=== PATIENT | male | born 1955 | race Hispanic/Latino ===

== ENCOUNTER 2021-02-14 15:00 | Inpatient (IN) | payer OTHER ==
[~2021-02-14] VITALS: Ht 177.8 cm; Wt 135.2 kg
[2021-02-14] MEDS ORDERED: ASPIRIN 325MG TAB ONE (15:12)
[2021-02-14] MEDS ORDERED: NITROGLYCERIN 0.4 MG SL TAB SL ONE (15:12)
[2021-02-14 15:22] LABS: BASOPHILS % (AUTO) 0.5 % (0.0-5.0); EOSINOPHILS % (AUTO) 1.7 % (0.0-8.0); HEMATOCRIT 49.6 % (42-54); LYMPHOCYTES % (AUTO) 33.6 % (21.0-51.0); MEAN CORPUSCULAR HEMOGLOBIN 30.1 pg (27.0-33.0); MEAN CORPUSCULAR HGB CONC 32.1 g/dL (32.0-36.0); MEAN CORPUSCULAR VOLUME 93.9 fL (79-99); MONOCYTES % (AUTO) 10.3 % (3.0-13.0); NEUTROPHILS % (AUTO) 53.7 % (40.0-77.0); PLATELET COUNT (AUTO) 315 K/uL (130-400); RED BLOOD CELL COUNT(AUTO) 5.28 MIL/uL (4.50-6.20); RED CELL DISTRIBUTION WIDTH 13.7 % (11.0-15.5); WHITE BLOOD COUNT (AUTO) 9.6 K/uL (4.8-10.8)
[2021-02-14] MEDS ORDERED: ASPIRIN 325MG TAB PO ONE (15:30)
[2021-02-14] MEDS ORDERED: NITROGLYCERIN 0.4 MG SL TAB SL PRN (15:30)
[2021-02-14 15:32] LABS: CREATININE 1.2 mg/dL (0.5-1.5)
[2021-02-14 15:39] LABS: ALBUMIN 3.7 g/dL (3.5-5.0); BILIRUBIN,TOTAL 0.8 mg/dL (0.2-1.0); TOTAL PROTEIN, SERUM 8.2 g/dL (6.0-8.3)
[2021-02-14 15:51] LABS: B-TYPE NATRIURETIC PEPTIDE 209 pg/mL (0-100)
[2021-02-14] MEDS ORDERED: CLOPIDOGREL 300MG TAB PO ONE (17:00)
[2021-02-14] MEDS ORDERED: ACETAMINOPHEN 325 MG TAB PO PRN ×2 (17:00)
[2021-02-14] MEDS ORDERED: HYDRALAZINE 20MG/ML VIAL IV PRN (17:00)
[2021-02-14] MEDS ORDERED: ONDANSETRON 4MG INJ IV PRN (17:00)
[2021-02-14 17:16] LABS: CHOLESTEROL 201 mg/dL (<200); HDL CHOLESTEROL 44 mg/dL (29-71); LDL DIRECT 125 mg/dL (0-99); TRIGLYCERIDES 307 mg/dL (30-200)
[2021-02-14] MEDS ORDERED: MORPHINE 2 MG SYG IVP PRN (18:30)
[2021-02-14] MEDS ORDERED: CLOPIDOGREL 300MG TAB ONE (20:07)
[2021-02-14] MEDS: FAMOTIDINE 20MG TAB PO SCH (20:55)
[2021-02-14] MEDS ORDERED: FAMOTIDINE 20MG VIAL IV SCH (21:00)
[2021-02-14 21:10] VITALS: BP 149/99
[2021-02-14] MEDS ORDERED: HEPARIN 5,000 UNIT VIAL SQ PRN (21:30)
[2021-02-14] MEDS ORDERED: HEPARIN 25,000 UNITS/250ML D5W 250 ML IV SCH (21:30)
[2021-02-14] MEDS ORDERED: APIX5TAB PO (23:18)
[2021-02-14] MEDS ORDERED: metoprolol PO (23:19)
[2021-02-14] MEDS ORDERED: amoxicillin PO (23:21)
[2021-02-14] MEDS ORDERED: COUGH PO (23:22)
[2021-02-14 23:28] VITALS: BP 128/62
[2021-02-15] VITALS (13 sets, daily range): BP systolic 106–148; BP diastolic 55–95
[2021-02-15 04:53] LABS: BASOPHILS % (AUTO) 0.4 % (0.0-5.0); EOSINOPHILS % (AUTO) 1.8 % (0.0-8.0); HEMATOCRIT 44.8 % (42-54); LYMPHOCYTES % (AUTO) 33.2 % (21.0-51.0); MEAN CORPUSCULAR HEMOGLOBIN 29.8 pg (27.0-33.0); MEAN CORPUSCULAR HGB CONC 32.1 g/dL (32.0-36.0); MEAN CORPUSCULAR VOLUME 92.6 fL (79-99); MONOCYTES % (AUTO) 9.2 % (3.0-13.0); NEUTROPHILS % (AUTO) 55.2 % (40.0-77.0); PLATELET COUNT (AUTO) 302 K/uL (130-400); RED BLOOD CELL COUNT(AUTO) 4.84 MIL/uL (4.50-6.20); RED CELL DISTRIBUTION WIDTH 13.7 % (11.0-15.5); WHITE BLOOD COUNT (AUTO) 8.3 K/uL (4.8-10.8)
[2021-02-15 05:12] LABS: B-TYPE NATRIURETIC PEPTIDE 133 pg/mL (0-100)
[2021-02-15 05:18] LABS: POTASSIUM 4.2 mmol/L (3.5-5.1)
[2021-02-15] MEDS ORDERED: ASPIRIN 81MG CHEW TAB PO SCH (09:00)
[2021-02-15] MEDS ORDERED: CLOPIDOGREL 75MG TAB PO SCH (10:00)
[2021-02-15] MEDS ORDERED: NITROGLYCERIN 50MG VIAL IV ONE (11:10)
[2021-02-15] MEDS ORDERED: LIDOCAINE HCL 400MG/20ML VIAL ONE ×2 (11:10→11:56)
[2021-02-15] MEDS ORDERED: IOHEXOL-350 50ML VIAL IV ONE (11:10)
[2021-02-15] MEDS ORDERED: BIVALIRUDIN 250 MG/VIAL IV ONE (11:10)
[2021-02-15] MEDS ORDERED: HEPARIN 10,000 UNIT/10ML (1,000 UNIT/ML) VIAL ONE (11:10)
[2021-02-15] MEDS ORDERED: IOHEXOL 350 MG/ML 100ML INFUS..BTL IV ONE (11:10)
[2021-02-15] MEDS ORDERED: MIDAZOLAM HCL 1 MG/ML 2ML VIAL ONE (11:38)
[2021-02-15] MEDS ORDERED: FENTANYL CITRATE PF 50 MCG/1 ML 2ML VIAL ONE (11:39)
[2021-02-15] MEDS ORDERED: EPTIFIBATIDE 2 MG/ML 10 ML VIAL IVP ONE (12:09)
[2021-02-15] MEDS ORDERED: ASPIRIN 325MG EC TAB PO ONE (12:34)
[2021-02-15] MEDS ORDERED: 0.9%NACL 1000ML 1,000 ML IV SCH (13:00)
[2021-02-15] MEDS ORDERED: ONDANSETRON 4MG INJ IVP PRN (13:00)
[2021-02-15] MEDS ORDERED: NITROGLYCERIN 50MG/D5W 250ML 1 BOT IV PRN (13:00)
[2021-02-15] MEDS ORDERED: TEMAZEPAM 30 MG CAP PO PRN (13:00)
[2021-02-15] MEDS: FAMOTIDINE 20MG TAB PO SCH ×2 (15:22→20:47)
[2021-02-15] MEDS: EPTIFIBATIDE 75MG/100ML BOTTLE 100 ML IV SCH (17:56)
[2021-02-15] MEDS: ATORVASTATIN 40 MG TABLET PO SCH (20:47)
[2021-02-15] MEDS: METOPROLOL TARTRATE 25 MG TAB PO SCH (20:47)
[2021-02-15] MEDS: ENALAPRIL MALEATE 5 MG TAB PO SCH (20:47)
[2021-02-16] VITALS (7 sets, daily range): BP systolic 87–119; BP diastolic 48–68
[2021-02-16 04:11] LABS: HEMATOCRIT 44.8 % (42-54); MEAN CORPUSCULAR HEMOGLOBIN 30.1 pg (27.0-33.0); MEAN CORPUSCULAR HGB CONC 32.1 g/dL (32.0-36.0); MEAN CORPUSCULAR VOLUME 93.5 fL (79-99); RED BLOOD CELL COUNT(AUTO) 4.79 MIL/uL (4.50-6.20); RED CELL DISTRIBUTION WIDTH 13.6 % (11.0-15.5); WHITE BLOOD COUNT (AUTO) 8.1 K/uL (4.8-10.8)
[2021-02-16 04:24] LABS: CREATININE 1.1 mg/dL (0.5-1.5)
[2021-02-16] MEDS: ASPIRIN 81MG CHEW TAB PO SCH (08:31)
[2021-02-16] MEDS: EPTIFIBATIDE 75MG/100ML BOTTLE 100 ML IV SCH (08:31)
[2021-02-16] MEDS: CLOPIDOGREL 75MG TAB PO SCH (08:32)
[2021-02-16] MEDS: FAMOTIDINE 20MG TAB PO SCH ×2 (08:32→20:23)
[2021-02-16] MEDS: METOPROLOL TARTRATE 25 MG TAB PO SCH ×2 (08:32→20:24)
[2021-02-16] MEDS: ENALAPRIL MALEATE 5 MG TAB PO SCH ×2 (09:00→20:24)
[2021-02-16] MEDS: ATORVASTATIN 40 MG TABLET PO SCH (20:23)
[2021-02-17 03:36] VITALS: BP 103/56
[2021-02-17 03:51] LABS: HEMATOCRIT 44.4 % (42-54); MEAN CORPUSCULAR HEMOGLOBIN 30.4 pg (27.0-33.0); MEAN CORPUSCULAR HGB CONC 32.2 g/dL (32.0-36.0); MEAN CORPUSCULAR VOLUME 94.3 fL (79-99); RED BLOOD CELL COUNT(AUTO) 4.71 MIL/uL (4.50-6.20); RED CELL DISTRIBUTION WIDTH 13.7 % (11.0-15.5); WHITE BLOOD COUNT (AUTO) 7.8 K/uL (4.8-10.8)
[2021-02-17 04:04] LABS: CREATININE 1.1 mg/dL (0.5-1.5); POTASSIUM 4.7 mmol/L (3.5-5.1)
[2021-02-17] MEDS: FAMOTIDINE 20MG TAB PO SCH (08:27)
[2021-02-17] MEDS: CLOPIDOGREL 75MG TAB PO SCH (08:28)
[2021-02-17] MEDS: METOPROLOL TARTRATE 25 MG TAB PO SCH (08:28)
[2021-02-17] MEDS: ASPIRIN 81MG CHEW TAB PO SCH (08:29)
[2021-02-17 08:51] VITALS: BP 117/57
[2021-02-17 12:37] VITALS: BP 120/69
[2021-02-17 16:53] VITALS: BP 109/69
[2021-02-17] MEDS ORDERED: ASPI-1005 PO (17:01)
[2021-02-17] MEDS ORDERED: ATOR40TA69 PO (17:01)
[2021-02-17] MEDS ORDERED: ENAL2.5T16 PO (17:01)
[2021-02-17] MEDS ORDERED: CLOP75TA14 PO (17:01)
[2021-02-17] MEDS ORDERED: PANT40TA55 PO (17:01)
[2021-02-17] MEDS ORDERED: METO25 PO (17:01)
== END 2021-02-17 17:39 | disposition home or self-care (01) | DRG 246 ==
LOC: EDH 15:00 → EDHIP 16:47 → 4CH 20:09
PROVIDERS: ADMIT Internal Medicine; ATTEND Internal Medicine
PROC: 027034Z Dilation of Coronary Artery, One Artery with Drug-eluting Intraluminal Device, Percutaneous Approach (ICD-10-PCS; principal; 2021-02-15)
PROC: B2111ZZ Fluoroscopy of Multiple Coronary Arteries using Low Osmolar Contrast (ICD-10-PCS; 2021-02-15)
PROC: B41F1ZZ Fluoroscopy of Right Lower Extremity Arteries using Low Osmolar Contrast (ICD-10-PCS; 2021-02-15)
DX: I21.4 Non-ST elevation (NSTEMI) myocardial infarction (principal); I50.33 Acute on chronic diastolic (congestive) heart failure; Z68.41 Body mass index [BMI] 40.0-44.9, adult; I48.0 Paroxysmal atrial fibrillation; I20.0 Unstable angina; E66.01 Morbid (severe) obesity due to excess calories; Z98.84 Bariatric surgery status; Z79.01 Long term (current) use of anticoagulants; I11.0 Hypertensive heart disease with heart failure
CPT/HCPCS: 36415; 71045; 80048; 80053; 80061; 82550; 82948; 83880; 84484; 85025; 85027; 85730; 93005; 93306; 93454; 99156; 99157; 99291; C1760; C1894; C9600; G0378; J0583; J1327; J1644; J2250; J3010; J3490; Q9967